=== PATIENT | female | born 1955 | race Caucasian/White ===

== ENCOUNTER 2017-05-26 12:44 | Emergency (ER) | payer OTHER ==
[2017-05-26 12:53] VITALS: BP 149/85; PULSE 77; TEMP 98.3; BMI 30.2
[2017-05-26] MEDS ORDERED: ACETAMINOPHEN 325 MG TABLET (FP) PO ONE (13:25)
--- NOTE | 2017-05-26 13:26 | PDOC ---
History of Present Illness - General Chief Complaint: Injury Stated Complaint: INJURY Time Seen by Provider: 05/26/17 13:17 History Source: Patient - History of Present Illness Initial Comments: 05/26/17 13:40 61-year-old female complaining of sliding off of a rocking chair at work now complaining of left scapula pain, left sided rib pain and thoracic spine pain. Fall prior to arrival at 10:30 AM. Denies past medical history. Past History - Past Medical History Allergies/Adverse Reactions: Allergies Allergy/AdvReac Type Severity Reaction Status Date / Time No Known Allergies Allergy Verified 05/26/17 12:50 Home Medications: Ambulatory Orders Ibuprofen 600 mg PO QID PRN #20 tablet 05/26/17 COPD: No - Surgical History Cardiac Surgery: Yes (ablasion) - Suicide/Smoking/Psychosocial Hx Smoking History: Never smoked Have you smoked in the past 12 months: No Information on smoking cessation initiated: No Hx Alcohol Use: No Drug/Substance Use Hx: No Review of Systems - Review of Systems Able to Perform ROS?: Yes Is the patient limited Mongolian proficient: No Musculoskeletal: Yes: Joint Pain, Muscle Pain *Physical Exam - Vital Signs Last Vital Signs Temp Pulse Resp BP Pulse Ox 98.3 F 77 18 149/85 99 05/26/17 12:51 05/26/17 12:51 05/26/17 12:51 05/26/17 12:51 05/26/17 12:51 - Physical Exam General Appearance: Yes: Appropriately Dressed Respiratory/Chest: positive: Chest Tender (left posterior chest tender + scapula tenderness. full rom + thoracic spine tenderness. ), Lungs Clear, Normal Breath Sounds Cardiovascular: positive: Regular Rhythm, Regular Rate Extremity: positive: Normal Capillary Refill, Normal Inspection, Normal Range of Motion Integumentary: positive: Normal Color, Dry, Warm Neurologic: positive: Fully Oriented, Alert Progress Note - Progress Note Progress Note: A: muscloskeletal pain P: scapula xray left ribs thoracic spine xray *DC/Admit/Observation/Transfer Diagnosis at time of Disposition: Rib pain, Musculoskeletal pain - Discharge Dispostion Disposition: HOME Condition at time of disposition: Stable - Prescriptions Prescriptions: Ibuprofen 600 mg PO QID PRN #20 tablet PRN Reason: Moderate Pain - Referrals Referrals: Lavell Proctor MD [Primary Care Provider] - Call tomorrow - Patient Instructions Printed Discharge Instructions: DI for Musculoskeletal Pain Additional Instructions: take ibuprofen 400mg every 6 hours as needed for pain. follow up with your doctor as soon as possible. return to the ER if symptoms worsen. - Post Discharge Activity Forms/Work/School Notes: Back to Work
[2017-05-26] MEDS ORDERED: ACETAMINOPHEN 325 MG TABLET (FP) ONE (13:35)
== END 2017-05-26 14:23 | disposition home or self-care (01) ==
LOC: JERFT 12:44
DX: R07.81 Pleurodynia (principal); M79.1 Myalgia; W07.XXXA Fall from chair, initial encounter; Y93.89 Activity, other specified; Y92.9 Unspecified place or not applicable; Y99.0 Civilian activity done for income or pay
CPT/HCPCS: 71101-TC; 72070-TC; 73010-TC; 99281-25

== ENCOUNTER 2018-12-29 19:09 | Emergency (ER) | payer SELFPAY ==
--- NOTE | 2018-12-29 19:50 | PDOC ---
Rapid Medical Evaluation Chief Complaint: Injury Time Seen by Provider: 12/29/18 19:48 Medical Evaluation: Allergies Allergy/AdvReac Type Severity Reaction Status Date / Time No Known Allergies Allergy Verified 05/26/17 12:50 12/29/18 19:48 This patient had a brief in-person evaluation in triage CC:s/p slip and fall in [place], hurting right knee and right shoulder. 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
[2018-12-29] MEDS ORDERED: ACETAMINOPHEN 325 MG TABLET (FP) PO ONE (19:51)
[2018-12-29] MEDS ORDERED: ACETAMINOPHEN 325 MG TABLET (FP) ONE (20:06)
[2018-12-29 20:12] VITALS: BP 158/83; PULSE 64; TEMP 98.3; BMI 30.7
--- NOTE | 2018-12-29 20:25 | PDOC ---
History of Present Illness - General Chief Complaint: Injury Stated Complaint: FALL Time Seen by Provider: 12/29/18 19:48 - History of Present Illness Initial Comments: 12/29/18 20:21 62-year-old female without comorbidities presents for evaluation of right shoulder and right knee pain after a fall while shopping earlier this evening. No head injury only right knee and right shoulder pain Past History - Past Medical History Allergies/Adverse Reactions: Allergies Allergy/AdvReac Type Severity Reaction Status Date / Time No Known Allergies Allergy Verified 12/29/18 19:51 Home Medications: Ambulatory Orders Ibuprofen 600 mg PO QID PRN #20 tablet 05/26/17 COPD: No - Surgical History Cardiac Surgery: Yes (ablasion) - Suicide/Smoking/Psychosocial Hx Smoking History: Never smoked Have you smoked in the past 12 months: No Information on smoking cessation initiated: No Hx Alcohol Use: No Drug/Substance Use Hx: No Review of Systems - Review of Systems Musculoskeletal: Yes: Joint Pain *Physical Exam - Vital Signs Last Vital Signs Temp Pulse Resp BP Pulse Ox 98.3 F 64 18 158/83 100 12/29/18 19:48 12/29/18 19:48 12/29/18 19:48 12/29/18 19:48 12/29/18 19:48 - Physical Exam Comments: 12/29/18 20:22 Right knee skin color and temperature are normal range of motion 0-90 with mild discomfort terminal ranges diffuse joint line tenderness medial and laterally without instability no gross sensory motor deficits thighs and calves are soft and nontender neurovascularly intact. Right shoulder skin color and temperature are normal range of motion is full and nonpainful. 5 out of 5 strength Suba spinatus isolation negative impingement maneuvers neurovascular intact. ED Treatment Course - Medications Given in the ED: ED Medications Discontinued Medications Generic Name Dose Route Start Last Admin Trade Name Freq PRN Reason Stop Dose Admin Acetaminophen 650 mg 12/29/18 19:51 12/29/18 20:07 Tylenol - PO 12/29/18 19:52 650 mg ONCE ONE Administration Medical Decision Making - Medical Decision Making 12/29/18 20:23 X-rays of the right knee and shoulder show no evidence of fracture trauma or destructive process. Is a moderate amount of arthritic changes in the right knee. *DC/Admit/Observation/Transfer Diagnosis at time of Disposition: Fall, Contusion of knee, right, Strain of shoulder, right - Discharge Dispostion Disposition: HOME Condition at time of disposition: Stable Decision to Admit order: No - Referrals Referrals: Lavell Proctor MD [Primary Care Provider] - Hakeem Taylor DO [Staff Physician] - - Patient Instructions Additional Instructions: Weight-bear as tolerated. Return to the emergency room for worsening symptoms. Follow-up with orthopedic surgery in 1-2 days for further evaluation and treatment options. Continue regular medication as directed. - Post Discharge Activity
== END 2018-12-29 20:34 | disposition home or self-care (01) ==
LOC: JERFT 19:09
DX: S46.911A Strain of unspecified muscle, fascia and tendon at shoulder and upper arm level, right arm, initial encounter (principal); W18.39XA Other fall on same level, initial encounter; Y93.89 Activity, other specified; Y92.512 Supermarket, store or market as the place of occurrence of the external cause
CPT/HCPCS: 73030-TC-RT-FY; 73562-TC-RT-FY; 99282-25

== ENCOUNTER 2021-02-15 04:15 | Day surgery (SDC) | payer MEDICARE, OTHER ==
[2021-02-13 15:02] VITALS: BMI 31.1
[2021-02-15 07:11] VITALS: PULSE 74; TEMP 97.8
[2021-02-15] MEDS ORDERED: LIDOCAINE HCL/PF 1% SDV 5ML VIAL ONE (07:24)
[2021-02-15] MEDS ORDERED: BUPIVACAINE HCL/PF 0.75% 10 ML VIAL ONE (07:25)
[2021-02-15] MEDS ORDERED: LIDOCAINE HCL 1% PRESERVATIVE FREE - 30ML VIAL IJ ONE ×2 (08:23)
[2021-02-15] MEDS ORDERED: IOHEXOL 180 MG/1 ML ML IJ ONE (08:24)
[2021-02-15] MEDS ORDERED: BUPIVACAINE HCL/PF 0.75% 10 ML VIAL NR ONE ×2 (08:24→08:29)
[2021-02-15 09:47] VITALS: BP 122/60
== END 2021-02-15 09:45 | disposition home or self-care (01) ==
LOC: JASU-SURG 04:15
PROVIDERS: ATTEND Pain Medicine Pain Medicine
PROC: 3E0T33Z Introduction of Anti-inflammatory into Peripheral Nerves and Plexi, Percutaneous Approach (ICD-10-PCS; 2021-02-15)
PROC: 3E0T3BZ Introduction of Anesthetic Agent into Peripheral Nerves and Plexi, Percutaneous Approach (ICD-10-PCS; principal; 2021-02-15 08:00)
DX: M47.816 Spondylosis without myelopathy or radiculopathy, lumbar region (principal)
CPT/HCPCS: 76000-TC-FY

== ENCOUNTER 2022-11-11 03:39 | Day surgery (SDC) | payer OTHER ==
[2022-11-07 14:15] VITALS: BMI 33.2
[~2022-11-11 03:39] MED LIST: DEXAMETHASONE SOD PHOSPHATE 10 MG/1 ML VIAL IM ONE; IOHEXOL 180 MG/1 ML ML IJ ONE; LIDOCAINE HCL 1% PRESERVATIVE FREE - 30ML VIAL IJ ONE
[2022-11-11] MEDS ORDERED: LIDOCAINE HCL/PF 1% SDV 5ML VIAL ONE (07:21)
[2022-11-11] MEDS ORDERED: DEXAMETHASONE SOD PHOSPHATE 10 MG/1 ML VIAL ONE (07:21)
[2022-11-11] MEDS ORDERED: LIDOCAINE HCL 1% PRESERVATIVE FREE - 30ML VIAL IJ ONE (11:15)
[2022-11-11] MEDS ORDERED: IOHEXOL 180 MG/1 ML ML IJ ONE (11:17)
[2022-11-11] MEDS ORDERED: DEXAMETHASONE SOD PHOSPHATE 10 MG/1 ML VIAL IM ONE (11:23)
[2022-11-11 12:00] VITALS: RESP 16; TEMP 97.5
[2022-11-11 12:04] VITALS: BP 130/60; PULSE 70
[2022-11-11] MEDS ORDERED: ACETAMINOPHEN 500 MG TABLET (FP) PO PRN (13:01)
== END 2022-11-11 12:10 | disposition home or self-care (01) ==
LOC: JASU-SURG 03:39
PROVIDERS: ATTEND Pain Medicine Pain Medicine
PROC: 3E0R3BZ Introduction of Anesthetic Agent into Spinal Canal, Percutaneous Approach (ICD-10-PCS; 2022-11-11)
PROC: 3E0R33Z Introduction of Anti-inflammatory into Spinal Canal, Percutaneous Approach (ICD-10-PCS; principal; 2022-11-11 12:15)
DX: M54.16 Radiculopathy, lumbar region (principal)
CPT/HCPCS: 76000-TC-FY; J1100

== ENCOUNTER 2023-07-08 04:24 | Day surgery (SDC) | payer OTHER, MEDICARE ==
[2023-07-06 11:44] VITALS: BMI 29.2
[~2023-07-08 04:24] MED LIST changes: +BSS (NA/CA/MG/K) BALANCED SALT SOLUTION OPHTH SOLN 15 ML BOTTLE OS ONE; +CHONDROITIN SU A/HYALUR SOD 1 KIT IO ONE; -DEXAMETHASONE SOD PHOSPHATE 10 MG/1 ML VIAL IM ONE; +EPINEPHrine/PF 1 MG/1 ML (1:1,000) AMPULE SQ ONE; -IOHEXOL 180 MG/1 ML ML IJ ONE; -LIDOCAINE HCL 1% PRESERVATIVE FREE - 30ML VIAL IJ ONE
[2023-07-08 07:16] VITALS: RESP 18
[2023-07-08] MEDS ORDERED: TROPICAMIDE 1% OPHTH SOLN 15 ML BOTTLE ONE (07:16)
[2023-07-08] MEDS ORDERED: KETOROLAC TROMETHAMINE 0.5% EYE DROP 1 DROP DROPS ONE (07:16)
[2023-07-08] MEDS ORDERED: CYCLOPENTOLATE HCL 1% OPHTH SOLN 2 ML BOTTLE ONE (07:16)
[2023-07-08] MEDS ORDERED: PHENYLEPHRINE 2.5% OPTHALMIC DROP 2ML BOTTLE ONE (07:16)
[2023-07-08] MEDS ORDERED: OFLOXACIN 0.3% OPHTHALMIC SOLUTION 5 ML BOTTLE ONE (07:17)
[2023-07-08] MEDS: OFLOXACIN 0.3% OPHTHALMIC SOLUTION 5 ML BOTTLE OP SCH ×3 (07:25→07:46)
[2023-07-08] MEDS ORDERED: EPINEPHrine/PF 1 MG/1 ML (1:1,000) AMPULE ONE (07:25)
[2023-07-08] MEDS ORDERED: TETRACAINE 0.5% OPHTH SOLN 2 ML BOTTLE ONE (07:25)
[2023-07-08] MEDS ORDERED: POVIDONE-IODINE 5% OPHTHALMIC PREP 30 ML SOLUTION ONE (07:25)
[2023-07-08] MEDS: PHENYLEPHRINE 2.5% OPHTH SOLN 15 ML BOTTLE OP SCH ×3 (07:25→07:46)
[2023-07-08] MEDS: KETOROLAC TROMETHAMINE 0.5% EYE DROP 1 DROP DROPS OP SCH ×3 (07:26→07:46)
[2023-07-08] MEDS: CYCLOPENTOLATE HCL 1% OPHTH SOLN 2 ML BOTTLE OP SCH ×3 (07:26→07:46)
[2023-07-08] MEDS: TROPICAMIDE 1% OPHTH SOLN 15 ML BOTTLE OP SCH ×3 (07:27→07:46)
[2023-07-08] MEDS ORDERED: ONDANSETRON 4 MG/2 ML VIAL ONE (08:11)
[2023-07-08] MEDS ORDERED: MIDAZOLAM HCL 2 MG/2 ML SINGLE DOSE VIAL ONE (08:11)
[2023-07-08] MEDS ORDERED: TETRACAINE 0.5% OPHTH SOLN 2 ML BOTTLE OS ONE (09:03)
[2023-07-08] MEDS ORDERED: POVIDONE-IODINE 5% OPHTHALMIC PREP 30 ML SOLUTION OS ONE (09:05)
[2023-07-08] MEDS ORDERED: ACETAMINOPHEN 325 MG TABLET (FP) PO PRN (09:05)
[2023-07-08] MEDS ORDERED: LIDOCAINE HCL 1% PRESERVATIVE FREE - 30ML VIAL IO ONE (09:10)
[2023-07-08] MEDS ORDERED: PHENYLEPHRINE 2.5% OPHTH SOLN 15 ML BOTTLE OP SCH (09:15)
[2023-07-08] MEDS ORDERED: KETOROLAC TROMETHAMINE 0.5% EYE DROP 1 DROP DROPS OP SCH (09:15)
[2023-07-08] MEDS ORDERED: CYCLOPENTOLATE HCL 1% OPHTH SOLN 2 ML BOTTLE OP SCH (09:15)
[2023-07-08] MEDS ORDERED: TROPICAMIDE 1% OPHTH SOLN 15 ML BOTTLE OP SCH (09:15)
[2023-07-08] MEDS ORDERED: OFLOXACIN 0.3% OPHTHALMIC SOLUTION 5 ML BOTTLE OP SCH (09:15)
[2023-07-08] MEDS ORDERED: CHONDROITIN SU A/HYALUR SOD 1 KIT IO ONE (09:16)
[2023-07-08] MEDS ORDERED: BSS (NA/CA/MG/K) BALANCED SALT SOLUTION OPHTH SOLN 15 ML BOTTLE OS ONE (09:16)
[2023-07-08] MEDS ORDERED: EPINEPHrine/PF 1 MG/1 ML (1:1,000) AMPULE SQ ONE (09:20)
[2023-07-08] MEDS ORDERED: ACETAMINOPHEN 325 MG TABLET (FP) ONE (09:53)
[2023-07-08 10:28] VITALS: BP 136/85; PULSE 82; TEMP 97.8
== END 2023-07-08 11:05 | disposition home or self-care (01) ==
LOC: JASU-SURG 04:24
PROVIDERS: ATTEND Ophthalmology
PROC: 08RK3JZ Replacement of Left Lens with Synthetic Substitute, Percutaneous Approach (ICD-10-PCS; principal; 2023-07-08 09:00)
DX: H26.9 Unspecified cataract (principal)
CPT/HCPCS: V2632